=== PATIENT | male | born 1950 | race African-American/Black ===

== ENCOUNTER 2017-09-27 21:43 | Emergency (ER) | payer BC ==
[~2017-09-27] VITALS: Ht 175.3 cm; Wt 107.5 kg
[~2017-09-27 21:43] MED LIST: ASPIR 8181 M1 PO; GLIMEPIRIDE4 MG PO; IBUPROFEN200 M1 PO; JANUVIA100 MG PO; LOVASTATIN40 MG PO; METFORMIN HCL1000 MG PO; METFORMIN HCL850 MG PO; ZESTRIL,PRINIV2.5 MG PO
[2017-09-27] MEDS ORDERED: TOBREX5 ML RIGHT EYE (22:41)
[2017-09-27 22:52] VITALS: BP 133/74
== END 2017-09-27 22:52 | disposition home or self-care (01) ==
LOC: EME 21:43
DX: H10.9 Unspecified conjunctivitis (principal); E11.9 Type 2 diabetes mellitus without complications; E78.5 Hyperlipidemia, unspecified; I10 Essential (primary) hypertension; Z79.84 Long term (current) use of oral hypoglycemic drugs; Z79.82 Long term (current) use of aspirin
CPT/HCPCS: 99281; 99283

== ENCOUNTER 2017-11-24 18:04 | Emergency (ER) | payer OTHER, BC ==
[~2017-11-24] VITALS: Ht 175.3 cm; Wt 106.2 kg
[~2017-11-24 18:04] MED LIST changes: +TOBREX5 ML RIGHT EYE
[2017-11-24] MEDS ORDERED: FLEXERIL10 MG PO (20:53)
[2017-11-24 21:18] VITALS: BP 137/89
== END 2017-11-24 21:29 | disposition home or self-care (01) ==
LOC: EME 18:04
DX: S16.1XXA Strain of muscle, fascia and tendon at neck level, initial encounter (principal); S06.0X0A Concussion without loss of consciousness, initial encounter; M54.6 Pain in thoracic spine; M47.893 Other spondylosis, cervicothoracic region; M41.9 Scoliosis, unspecified; E11.9 Type 2 diabetes mellitus without complications; W18.30XA Fall on same level, unspecified, initial encounter; Y09 Assault by unspecified means; Y99.0 Civilian activity done for income or pay
CPT/HCPCS: 72040; 72070; 99281; 99284